=== PATIENT | female | born 1995 | race Caucasian/White ===

== ENCOUNTER 2018-11-18 23:56 | Emergency (ER) | payer OTHER ==
[~2018-11-18] VITALS: Ht 170.2 cm; Wt 65.8 kg
[~2018-11-18 23:56] MED LIST: BIRTH CONTROL; CEPHALEXIN 500500 M3 PO; CIPROFLOXACIN500 M1 PO; HYDROCODONE-AP1 EAC6 PO; HYDROCORTISONE3011 TP; HYDROXYZINE HCL25 M1 PO; IBUPROFEN 800800 M1 PO; KEFLEX500 MG PO; MEDROLDOSEPACK PO; NAPROSYN500 MG PO; NORCO 5-325 TA1 EACH PO; PENICILLIN VK250 MG PO; PREDNISONE 20 M20 MG PO; PROAIR HFA8.5 GM INH; PYRIDIUM200 MG PO; TESSALON PERLE100 MG PO; TRINESSA1 EACH; VICODIN ES 7.51 EACH PO; VISTARIL 25 MG25 M1 PO; ZOFRAN ODT4 MG PO
[2018-11-19] MEDS ORDERED: UNICOMPLEX M TA1 TA1 PO (00:08)
[2018-11-19 00:21] LABS: URINE BILIRUBIN NEGATIVE (Negative); URINE BLOOD NEGATIVE (Negative); URINE CLARITY CLEAR; URINE COLOR YELLOW; URINE GLUCOSE-RANDOM NEGATIVE (Negative); URINE KETONES NEGATIVE (Negative); URINE LEUKOCYTES-REFLEX NEGATIVE (Negative); URINE NITRITE-REFLEX NEGATIVE (Negative); URINE PROTEIN TRACE (Negative); URINE SPECIFIC GRAVITY >= 1.030 (1.005-1.030); URINE UROBILINOGEN 0.2 E.U./dl (0.2-1.0)
[2018-11-19 00:37] VITALS: BP 130/79
== END 2018-11-19 00:38 | disposition home or self-care (01) ==
LOC: M.ERS 23:56
PROVIDERS: Family Medicine
DX: M54.5 Low back pain (principal); F17.210 Nicotine dependence, cigarettes, uncomplicated; Z98.890 Other specified postprocedural states; Z88.5 Allergy status to narcotic agent